=== PATIENT | female | born 1985 | race African-American/Black ===

== ENCOUNTER 2020-05-31 14:49 | Emergency (ER) | payer OTHER ==
[2020-05-31 14:58] VITALS: BMI 30.9
[2020-05-31] MEDS ORDERED: ACETAMINOPHEN 1000 MG/100 ML VIAL (NON FORMULARY) IVPB ONE (15:41)
[2020-05-31] MEDS ORDERED: ACETAMINOPHEN INJECTION 100 ML IVPB ONE (16:06)
[2020-05-31 16:23] LABS: BASO % 0.7 % (0-2.0); HEMATOCRIT 28.1 % (32.4-45.2); HEMOGLOBIN 8.5 GM/dL (10.7-15.3); LYMPH % 15.6 % (8-40); MCHC 30.1 g/dl (32.0-36.0); MEAN PLT VOLUME 9.4 fl (7.5-11.1); NEUT % 74.7 % (42.8-82.8); PLATELET COUNT 587 K/MM3 (134-434); RBC 4.32 M/mm3 (3.60-5.2); RDW 18.9 % (11.6-15.6); WHITE BLOOD COUNT 12.1 K/mm3 (4.0-10.0)
[2020-05-31 16:28] LABS: EPI CELLS 20 /uL (0-25.1); HYALINE CASTS 2 /uL (0-3.1); MCH 19.6 pg (25.7-33.7); URINE APPEARANCE CLEAR; URINE BACTERIA 41 /uL (0-1359); URINE BILIRUBIN NEGATIVE (NEGATIVE); URINE COLOR YELLOW; URINE GLUCOSE (UA) NEGATIVE (NEGATIVE); URINE KETONE TRACE (NEGATIVE); URINE LEUK ESTERASE NEGATIVE (NEGATIVE); URINE NITRITE NEGATIVE (NEGATIVE); URINE PROTEIN 2+ (NEGATIVE); URINE RBC 1601 /uL (0-23.9); URINE UROBILINOGEN 0.2 mg/dL (0.2-1.0); URINE WBC 8 /uL (0-25.8)
[2020-05-31 16:30] LABS: HCG,QUALITATIVE URINE Negative
[2020-05-31 16:35] LABS: POTASSIUM 4.1 mmol/L (3.5-5.1)
[2020-05-31 16:37] LABS: CALCIUM 9.4 mg/dL (8.5-10.1)
[2020-05-31 16:38] LABS: ALBUMIN 4.4 g/dl (3.4-5.0)
[2020-05-31 16:41] LABS: CREATININE 0.9 mg/dL (0.55-1.3)
[2020-05-31 16:42] LABS: BILIRUBIN,TOTAL 0.4 mg/dL (0.2-1); TOT PROT 8.5 g/dl (6.4-8.2)
[2020-05-31 17:12] VITALS: BP 122/61; PULSE 68; TEMP 97.8
[2020-05-31 17:17] LABS: ANISOCYTOSIS 1+
== END 2020-05-31 17:12 | disposition home or self-care (01) ==
LOC: JER 14:49
PROC: 3E033NZ Introduction of Analgesics, Hypnotics, Sedatives into Peripheral Vein, Percutaneous Approach (ICD-10-PCS; principal; 2020-05-31)
DX: N92.0 Excessive and frequent menstruation with regular cycle (principal)
CPT/HCPCS: 36415; 80053; 81003; 84703; 85025; 87086; 87491; 87591; 99284-25; J0131